=== PATIENT | male | born 1985 | race Caucasian/White ===

== ENCOUNTER 2017-11-02 07:00 | Outpatient (CLI) | payer BC ==
--- NOTE | 2017-11-02 08:46 | ULT ---
ABDOMINAL ULTRASOUND: Date: 11-02-17 History: Abdominal pain. FINDINGS: The liver has a normal sonographic appearance but does appear mildly enlarged with craniocaudal dimen sions measuring 18 cm. The gallbladder is normal in appearance. No gallbladder calculi are seen. There is no gallbladder wal l thickening or pericholecystic fluid. The common duct measures 0.4 cm in diameter which is within no rmal limits. The pancreas, abdominal aorta, visualized portions of the IVC, spleen, and kidneys demonstrate a norm al sonographic appearance. The right kidney measures 11.7 cm in length. The left kidney measures 13.7 cm in length. IMPRESSION: 1. Mild enlargement of the liver. The abdominal ultrasound is otherwise within normal limits. POS: [id number]
== END 2017-11-02 07:01 | disposition home or self-care (01) ==
LOC: SCSULT 07:00
PROVIDERS: ATTEND Internal Medicine Gastroenterology
DX: R10.9 Unspecified abdominal pain (principal); R16.0 Hepatomegaly, not elsewhere classified
CPT/HCPCS: 76700